=== PATIENT | female | born 1995 | race African-American/Black ===

== ENCOUNTER 2018-11-25 01:22 | Emergency (ER) | payer MEDICAID, SELFPAY ==
[2018-11-25] MEDS ORDERED: Mag-Al Plus 1200 MG/1200 MG/120 MG/30 ML UDCUP ONE (01:44)
[2018-11-25] MEDS ORDERED: Ondansetron ODT 4 MG TAB ONE (01:44)
[2018-11-25] MEDS ORDERED: Lidocaine Viscous Sol 2% 15 ml UD Cup ONE (01:44)
== END 2018-11-25 02:08 | disposition home or self-care (01) ==
LOC: NAV ERS 01:22
DX: O21.9 Vomiting of pregnancy, unspecified (principal); O99.89 Other specified diseases and conditions complicating pregnancy, childbirth and the puerperium; R51 Headache; R07.89 Other chest pain; O99.612 Diseases of the digestive system complicating pregnancy, second trimester; K21.9 Gastro-esophageal reflux disease without esophagitis; Z3A.20 20 weeks gestation of pregnancy
CPT/HCPCS: 93005; Q0162